=== PATIENT | male | born 1990 | race Caucasian/White ===

== ENCOUNTER 2019-01-31 08:39 | Outpatient (CLI) | payer OTHER ==
--- NOTE | 2019-01-31 17:18 | MRI Report ---
Reason: GAGLION, UNSPECIFIED WRIST Procedure Date: 01/31/2019 Accession Number: [id number] / [id number] Procedure: MRI - Wrist RT W/O CPT Code: FULL RESULT: EXAM: RIGHT WRIST MRI WITHOUT CONTRAST EXAM DATE: 01/31/2019 09:22 AM. CLINICAL HISTORY: Ganglion, unspecified wrist. COMPARISON: None. TECHNIQUE: Multiplanar, multisequence T1-weighted and fluid-sensitive sequences of the wrist without contrast. Other: None. FINDINGS: Bones: No fractures or subluxations. No marrow edema. No bone lesions. Cartilage: The articular cartilage is unremarkable. The triangular fibrocartilage complex is unremarkable. Ligaments: The scapholunate and lunotriquetral ligaments are intact. The visualized other intrinsic, extrinsic and collateral ligaments are unremarkable. Tendons: The extensor compartment I through and flexor tendons are unremarkable. Musculature: No edema or fatty atrophy. Other: The contents of the carpal tunnel, including the median nerve, are unremarkable. Guyons canal is unremarkable. Focal area of concern at the dorsal aspect of the wrist corresponds to a region of discrete low signal on T1, high signal on T2 located at the dorsal aspect of the lunate-capitate articulation which measures 4.6 x 3 mm transversely and extending for a 4.2 mm cephalocaudal extent. No joint effusions. The subcutaneous tissues are unremarkable. IMPRESSION: 1. Focal area of concern at the dorsal aspect of the wrist is likely a benign ganglion cyst. 2. No other abnormalities are noted. [facility] MUSCULOSKE[facility] SECTION
== END 2019-01-31 08:40 | disposition home or self-care (01) ==
LOC: DI 08:39
DX: M67.431 Ganglion, right wrist (principal)

== ENCOUNTER 2019-02-02 15:07 | Emergency (ER) | payer OTHER ==
--- NOTE | 2019-02-02 15:14 | ED Physician Documentation ---
PD HPI UPPER EXT INJURY - Stated complaint Stated Complaint: RT HAND PX/INJURY - History obtained from History obtained from: Patient - History of Present Illness Location: Left, Hand Type of injury: Fall (tripped on deck steps and fell forward with hand going between two steps and getting twisted/bent at mid hand. Pain abruptly over ulnar side mid hand.) Timing - onset: How many hours ago (1), Today Timing - duration: Hours (1) Timing - details: Abrupt onset Improved by: No: Rest Worsened by: Moving, Palpating Associated symptoms: Swelling. No: Weakness, Numbness Similar symptoms before: Has not had sx before Recently seen: Not recently seen Review of Systems Skin: denies: Abrasion (s), Laceration (s) Musculoskeletal: denies: Neck pain, Back pain PD PAST MEDICAL HISTORY - Past Medical History Musculoskeletal: None - Present Medications Home Medications: Ambulatory Orders Medication Instructions Recorded Confirmed Ibuprofen 600 mg PO TID PRN #25 tablet 02/02/19 - Allergies Allergies/Adverse Reactions: Allergies Allergy/AdvReac Type Severity Reaction Status Date / Time No Known Drug Allergies Allergy Verified 02/02/19 15:16 PD ED PE NORMAL - Vitals Vital signs reviewed: Yes - General General: Alert and oriented X 3, No acute distress, Well developed/nourished - Derm Derm: Normal color, Warm and dry - Extremities Extremities: Other (left hand with tenderness and swelling over mid 4th MC area. When he flexes fingers, there is some sunkenness to the 4th MCP. No noted malrotation of the finger on flexion. ) - Neuro Neuro: No motor deficit, No sensory deficit, Other (good color and cap refill in fingers. ) Results - Vitals Vitals: Vital Signs - 24 hr 02/02/19 15:14 Temperature 37.0 C Heart Rate 67 Respiratory 17 Rate Blood Pressure 144/79 H O2 Saturation 99 Oxygen O2 Source Room air - Rads (name of study) left hand Radiology: Prelim report reviewed (oblique fracture midshaft 4th MC, without angulation and minimal displacement. ), EMP read contemporaneously, See rad report Procedures - Splint (location) left hand Splint applied by: Tech Type of splint: Fiberglass, Ulnar gutter Other: Patient tolerated well, No complications, Neurovascular intact Departure - Departure Disposition: 01 Home, Self Care Clinical Impression: Closed fracture of 4th metacarpal Qualifiers: Encounter type: initial encounter Metacarpal location: shaft Fracture alignment: nondisplaced Laterality: left Qualified Code(s): S62.355A - Nondisplaced fracture of shaft of fourth metacarpal bone, left hand, initial encounter for closed fracture Condition: Stable Record reviewed to determine appropriate education?: Yes Instructions: ED Fx Hand Closed Follow-Up: KIRSTEN Ritter [Provider Group] Prescriptions: Ibuprofen 600 mg PO TID PRN #25 tablet PRN Reason: Pain Comments: Keep the splint on and have your hand rested elevated often. You can use ice to reduce swelling. Use some ibuprofen 2-3 times a day for inflammation and pain. Add Tylenol as needed. Follow-up with your primary care in about a week for recheck. Sometimes with swelling and such that the splint may need replacing to be better fitting. He will need to splint for about 4 weeks for healing. Light use of that hand during that time. Forms: Activity restrictions Discharge Date/Time: 02/02/19 16:55
[2019-02-02 15:15] VITALS: BP 144/79
[2019-02-02] MEDS ORDERED: IBUPROFEN 600 MG TABLET PO STA (15:30)
--- NOTE | 2019-02-02 16:03 | XRAY Report ---
Reason: hand injury today Procedure Date: 02/02/2019 Accession Number: [id number] / [id number] Procedure: XR - Hand 3 View LT CPT Code: FULL RESULT: EXAM: LEFT HAND RADIOGRAPHY. EXAM DATE: 02/02/2019 03:38 PM. CLINICAL HISTORY: Hand injury today. COMPARISON: None. TECHNIQUE: 3 views. FINDINGS: Bones: There is an oblique nondisplaced longitudinal fracture mid diaphysis of the fourth metacarpal. A possible hairline component of this fracture may extend to the proximal articular surface. No additional fracture is appreciated. Joints: Normal. No subluxations. Soft Tissues: Mild associated soft tissue swelling. IMPRESSION: Oblique, nondisplaced fracture of the mid and proximal fourth metacarpal with possible proximal intra-articular extension. [facility]
== END 2019-02-02 16:55 | disposition home or self-care (01) ==
LOC: ED 15:07
DX: S62.355A Nondisplaced fracture of shaft of fourth metacarpal bone, left hand, initial encounter for closed fracture (principal); W01.198A Fall on same level from slipping, tripping and stumbling with subsequent striking against other object, initial encounter; X50.1XXA Overexertion from prolonged static or awkward postures, initial encounter
CPT/HCPCS: 29125; 73130; 99282; A9270

== ENCOUNTER 2019-04-11 09:09 | Day surgery (SDC) | payer OTHER ==
[~2019-04-11 09:09] MED LIST: CEFAZOLIN SODIUM IN 0.9 % NACL 2 GM/100 ML BAG IV ONE
[2019-04-11] MEDS ORDERED: BUPIVACAINE 0.25% PF 30 ML VIAL ONE ×2 (09:36→09:43)
[2019-04-11] MEDS ORDERED: LACTATED RINGERS 1,000 ML IV ONE ×2 (09:40→13:08)
--- NOTE | 2019-04-11 11:10 | ANESTHESIA ---
Pre-Anesthesia VS, & Labs - Diagnosis right wrist mass - Procedure excision lesion right wrist Vital Signs: Temp Pulse Resp BP Pulse Ox 36.6 C 64 14 116/76 98 04/11/19 09:32 04/11/19 09:32 04/11/19 09:32 04/11/19 09:32 04/11/19 09:32 Height 5 ft 5 in Weight (kg) 59.42 kg Body Mass Index 21.6 - NPO >8 hours Home Medications and Allergies Home Medications: Ambulatory Orders Ascorbic Acid [Vitamin C] 500 mg PO DAILY 04/07/19 Magnesium 250 mg PO DAILY 04/07/19 Ascorbic Acid [Vitamin C] 500 mg PO DAILY 04/07/19 Magnesium 250 mg PO DAILY 04/07/19 Allergies/Adverse Reactions: Allergies Allergy/AdvReac Type Severity Reaction Status Date / Time No Known Drug Allergies Allergy Verified 04/07/19 14:15 Anes History & Medical History - Medical History Cardiovascular: reports: None Pulmonary: reports: None Gastrointestinal: reports: None Urinary: reports: None Musculoskeletal: reports: Other Endocrine/Autoimmune: reports: None Skin: reports: None Smoking Status: Never smoker Exam Dental: WNL Mallampati classification: II Respiratory: Lungs clear Cardiovascular: Regular rate Plan Anesthesia Type: General, MAC Consent for Procedure(s) Verified and Reviewed: Yes Code Status: Attempt Resuscitation ASA classification: 1-Healthy patient Is this case an emergency?: No
[2019-04-11] MEDS ORDERED: fentaNYL 100 MCG/2 ML VIAL IVP ONE (12:30)
[2019-04-11] MEDS ORDERED: ONDANSETRON 4 MG/2 ML VIAL IVP ONE (12:30)
[2019-04-11] MEDS ORDERED: MIDAZOLAM 2 MG/2 ML VIAL IVP ONE (12:30)
[2019-04-11] MEDS ORDERED: KETOROLAC 30 MG/ML VIAL IVP ONE (12:30)
[2019-04-11] MEDS ORDERED: DEXAMETHASONE 4 MG/ML VIAL IVP ONE (12:30)
[2019-04-11] MEDS ORDERED: LIDOCAINE-MPF 2% 5 ML VIAL IM ONE (12:30)
[2019-04-11] MEDS ORDERED: PROPOFOL 200 MG/20 ML VIAL IVP ONE (12:30)
[2019-04-11] MEDS ORDERED: BUPIVACAINE 0.25% PF 30 ML VIAL SUBQ ONE ×2 (12:32→12:55)
[2019-04-11] MEDS ORDERED: oxyCODONE 5 MG TABLET PO PRN (13:14)
[2019-04-11] MEDS ORDERED: ONDANSETRON 4 MG/2 ML VIAL IVP PRN (13:14)
--- NOTE | 2019-04-11 13:37 | OPERATIVE REPORT ---
Operative Report - General Procedure Date: 04/11/19 Planned Procedure: Right dorsal wrist mass excision Pre-Op Diagnosis: Right dorsal wrist mass, presumed ganglion Procedure Performed: Right dorsal wrist mass excision Post Op Diagnosis: Right dorsal wrist mass, present ganglion - Procedure Note Primary Surgeon: MARLA STEPHENS Secondary Surgeon: ALYSSA CHOUDHURY Anesthesia Technique: General LMA Estimated Blood Loss (mL): 5 - Other Other Information/Narrative: Tourniquet Time: 39 minutes at 250mmHg. Specimen(s) Information: Right dorsal wrist mass Complication(s): None Condition: Stable to recovery Indications for Surgery: The patient is a 28-year-old right hand dominant male with a 3 to 4 month history of a right dorsal wrist mass. He first noticed the mass in late winter 2018. The mass causes pain with wrist flexion and extension as well as with heavy lifting and repetitive motions. He has altered his activities and workouts secondary to pain. Clinical exam demonstrated a slightly mobile, somewhat compressible mass just distal to the SL interval on the right dorsal carpus. The mass was situated by wrist flexion and was tender/painful with direct palpation. Xrays were normal. MRI demonstrated a T2 hyperintense homogenous mass. The patient was counseled on treatment options to include continued nonoperative treatment in the form of activity modification, aspiration of the mass versus surgical excision. Patient elected to proceed with surgical removal. Risks of surgery were discussed to include bleeding, infection, postoperative wrist stiffness, mass recurrence, damage to nerves, vessels, tendons, ligaments, bone and cartilage and anesthesia complications to include medication side effects and allergic reactions and even . After discussion, he wished to proceed. Descriptions of Procedure: The patient was met in the Preoperative Holding Area, at which time preoperative paperwork was confirmed. The right dorsal wrist was signed. The patient was then brought to Main Operating Room, placed supine on the Operating Room table. General anesthesia was induced and an LMA was placed. The operative extremity was then prepped and draped over a hand table in the normal sterile fashion after a well-padded tourniquet was placed on the proximal arm. A surgical timeout was conducted to confirm the correct patient, correct extremity and correct procedure and to confirm that antibiotics (2 g cefazolin IV) had been administered within 30 minutes of incision time. The operative extremity was then exsanguinated with an Esmarch bandage and tourniquet inflated to 250mmHg. A 2cm transverse incision was made over the mass with a #15 blade through skin and subcutaneous tissue. Dissection was further carried out with tenotomy scissors. The mass was carefully dissected, circumferentially freeing the soft tissue attachments. As we approached the capsule, the mass appeared to spontaneously decompress, the previously identified soft tissue, was then removed with a section of wrist capsule and sent for pathology. The scapholunate articulation was visible. Inspection and palpation of the wound revealed no additional cystic masses. Of note, the dorsal/proximal pole of his scaphoid is somewhat prominent. The wound was then copiously irrigated. The retinaculum and deep dermal layer were closed with 2-0 Vicryl in buried interrupted fashion. The skin was then closed with 3-0 monocryl in running subcuticular fashion. Mastisol and Steri-Strips were applied. 10 mL of half percent plain Marcaine was injected around the incision. The wound was dressed with plain 4x4 gauze, followed by webril, and a volar wrist splint followed by a compressive Herve bandage. The tourniquet was let down. The patient was then awakened from general anesthesia without complication, brought to the Post Anesthesia Care for further recovery. Postoperative Plan: 1. The patient will be discharged from the Same Day Surgery Unit when discharge criteria are met. 2. The patient will remain in a splint for approximately 5 days until follow-up, this will be removed in clinic to facilitate early range of motion. 3. Expect return to full duty in 4-6 weeks, and he was counseled that he may have wrist stiffness up to 8 weeks postoperatively. 4. Discharge precautions were provided in both verbal and written form to the patient
[2019-04-11 14:08] VITALS: BP 116/67
[2019-04-11] MEDS ORDERED: oxyCODONE 5 MG TABLET ONE (14:15)
== END 2019-04-11 09:10 | disposition home or self-care (01) ==
LOC: SDS 09:09
PROVIDERS: ATTEND Orthopaedic Surgery
PROC: 0LB50ZZ Excision of Right Lower Arm and Wrist Tendon, Open Approach (ICD-10-PCS; principal; 2019-04-11 10:30)
DX: M67.431 Ganglion, right wrist (principal)
CPT/HCPCS: 25111; A9270; J0690; J7120